=== PATIENT | male | born 1970 | race Two or more races ===

== ENCOUNTER 2018-11-08 12:32 | Emergency (ER) | payer MEDICAID, OTHER ==
[~2018-11-08] VITALS: Ht 165.1 cm; Wt 88.7 kg
--- NOTE | 2018-11-08 13:00 | NUR ---
First contact with pt. Pt resting on peterson. Pt's friend at bedside states, "He cut his finger tips off on Wednesday. He went to [facility] and they did some x-rays, shots in his hands, and bandaged him up and booted him out. He hasn't had his bandage changed since Wednesday. He lost a lot of blood. They sent us to an orthopedist and they wouldn't help us because we didn't have all the paperwork from [facility] because they didn't give it all to us." JAQUANN. Pt resting on peterson. All safety measures in place. ED PA at bedside.
[2018-11-08] MEDS ORDERED: HYDROcodone/APAP 5/325 TABLET PO ONE (13:30)
[2018-11-08] MEDS ORDERED: HYDROcodone/APAP 5/325 TABLET ONE (13:31)
[2018-11-08 14:05] VITALS: BP 133/69
--- NOTE | 2018-11-08 14:05 | NUR ---
BREAK RN: pt upright on gurney awake & calm, responds approp to staff, NAD, comfort measures provided, at BS, call light within reach.
[2018-11-08] MEDS ORDERED: LIDOCAINE 1%, 10ML INFIL ONE (14:30)
[2018-11-08] MEDS ORDERED: LIDOCAINE 1%-EPI 1:100K, 20ML ONE (14:33)
[2018-11-08] MEDS ORDERED: LIDOCAINE-MPF 1%, 5ML ONE (14:42)
--- NOTE | 2018-11-08 15:48 | NUR ---
Patient/Caregiver given discharge instructions and they have confirmed that they understand the instructions. Patient ambulatory with steady gait. ADDITIONAL DRESSING SUPPLIES PROVIDED
== END 2018-11-08 15:49 | disposition home or self-care (01) ==
LOC: ED 14:56
DX: S68.622A Partial traumatic transphalangeal amputation of right middle finger, initial encounter (principal); S68.624A Partial traumatic transphalangeal amputation of right ring finger, initial encounter; W45.8XXA Other foreign body or object entering through skin, initial encounter; Y93.89 Activity, other specified; Y92.69 Other specified industrial and construction area as the place of occurrence of the external cause; Y99.0 Civilian activity done for income or pay
CPT/HCPCS: 99283